=== PATIENT | male | born 2000 | race Caucasian/White ===

== ENCOUNTER 2025-03-08 11:30 | Emergency (ER) | payer SELFPAY ==
[2025-03-08 11:36] VITALS: BP 133/82; PULSE 80; TEMP 37; O2SAT 98; BMI 29.3
--- NOTE | 2025-03-08 11:58 | ED_ITS ---
HPI - Allergic Reaction General Chief complaint: Allergic Reaction Stated complaint: POSSIBLE ALLERGIC REACTION-FINGER SWELLING & ITCHI Time Seen by Provider: 03/08/25 11:48 Source: patient Mode of arrival: walk-in Limitations: no limitations History of Present Illness HPI narrative: Patient presented to the ER with a right hand swelling mostly toward the index finger that he noticed over the last few days he also mentioned that sometimes he will feel the itching in the left side he always have a dry skin but he never had itching and swelling No exposure to anybody who had similar problem and no exposure to any new environmental changes or any food or exposure Does not have any history of any significant allergies Related Data Previous Rx's ?Medication ?Instructions ?Recorded betamethasone valerate 0.1 % lotion 1 applic topical D AILY PRN itching 03/08/25 #60 mL Allergies Allergy/AdvReac Type Severity Reaction Status Date / Time No Known Drug Allergies Allergy Verified 03/08/25 11:35 PFSH PFSH Social History Little interest or pleasure in doing things: not at all Feeling down, depressed, or hopeless: not at all Exam Narrative Exam Narrative: Nurses notes and vital signs reviewed and patient is not hypoxic. General: Well-appearing and in no apparent distress. Skin: Patient have a very mild swelling at the proximal phalanx on the right hand mostly at the palmar aspect but there is no specific rash and he does have a dry skin Head: Normocephalic, atraumatic. Neck: Supple, non-tender. Eye: Pupils are equal, round and EOMI. No scleral icterus. Ears, Nose, Mouth, and Throat: Wearing his left ear set, oral mucosa is moist, no posterior oropharynx erythema, uvula is mid-line Cardiovascular: Regular Rate and Rhythm without murmur, gallop or rub. Respiratory: No accessory muscle use or respiratory distress. Lungs are clear to auscultation, no wheezing, rales or rhonchi Neurological: A&O x4. No cranial nerve dysfunction observed. No truncal ataxia. Moves all extremities. Sensation intact. Psychiatric: Cooperative avoiding any eye contact Constitutional Vital Signs, click to edit/add: Last Vital Signs Temp 98.6 F 03/08/25 11:36 Pulse 80 03/08/25 11:36 Resp 20 03/08/25 11:36 BP 133/82 03/08/25 11:36 Pulse Ox 98 03/08/25 11:36 Course Vital Signs Vital signs: Vital Signs Temperature 98.6 F 03/08/25 11:36 Pulse Rate 80 03/08/25 11:36 Respiratory Rate 20 03/08/25 11:36 Blood Pressure 133/82 03/08/25 11:36 Pulse Oximetry 98 03/08/25 11:36 Temperature 98.6 F 03/08/25 11:36 Pulse Rate 80 03/08/25 11:36 Respiratory Rate 20 03/08/25 11:36 Blood Pressure 133/82 03/08/25 11:36 Pulse Oximetry 98 03/08/25 11:36 MDM - Allergic Reaction MDM Narrative Medical decision making narrative: Patient presents to us with a mild case of itching and erythema to the area that is very mild mostly to the right hand but I did explain to the patient that right now although is not present at the moment if this keeps happening only in the fingers he needs to be evaluated for further pathology The patient does not have any history of Raynaud's phenomena The patient will be provided with prednisone here in the ER discharged home with local steroid cream for possible eczema The patient to follow-up with the primary care within 2 to 3 days and to come back to the ER in case of any worsening of the current symptoms or any new symptoms or concerns Discharge Plan Discharge Chief Complaint: Allergic Reaction Clinical Impression: Contact dermatitis Patient Disposition: Home, Self-Care Time of Disposition Decision: 11:59 Condition: Good Prescriptions / Home Meds: New betamethasone valerate 0.1 % lotion 1 applic topical DAILY PRN (Reason: itching) Qty: 60 0RF Print Language: Portuguese Instructions: Contact Dermatitis (DC) Discharge Date/Time: 03/08/25 12:30
--- OUTSIDE RECORDS SUMMARY | 2025-03-08 12:05 | XMS_ITS | Clinical Summary ---
Author Organization [facility] Address [address] [place] [address] Care Team Providers Care Process Engineering Technician Name Role Phone No, Physician Primary Care Provider Unavailabl e Allergies No known active allergies Medications No known medications Active Problems No known active problems Social History Tobacco UseTypesPacks/DayYears UsedDateSmoking Tobacco: FormerCigarettes Smokeless Tobacco: Never Tobacco Cessation:Counseling Given: Not Answered Alcohol UseStandard Drinks/WeekCommentsNever0 (1 standard drink = 0.6 oz pure alcohol)Sex and Gender InformationValueDate RecordedSex Assigned at BirthNot on fileLegal LehJmjm3506/23/2024 10:52 AM ESTGender IdentityNot on fileSexual OrientationNot on file Last Filed Vital Signs Vital SignReadingTime TakenCommentsBlood Iqcejgxk636/7406/23/2024 1:40 PM EST Ftsuo330806/23/2024 1:40 PM AYEEswldzgmpvl79.7 ??C (98 ??F)06/23/2024 1:40 PM EST Respiratory Ecby731906/23/2024 1:40 PM ESTOxygen Jajxbgatup47%06/23/2024 1:40 PM ESTInhaled Oxygen Concentration--Crwcfx27.9 kg (196 lb)06/23/2024 1:40 PM EST Height--Body Mass Index-- Plan of Treatment Health MaintenanceDue DateLast DoneCommentsTetanus: Every 10yrs (RETIRED) 1998Wellness Visit2001Depression Screening/Follow-Up (PHQ-2/9) 2010HIV Lenyqfwvk24/07/2014Hepatitis C Kuzdxjgrn53/07/2017COVID-19 Vaccine ( season)2025Influenza Vaccine (#1)2025Pneumococcal VaccineAged OutNo longer eligible based on patient's age to complete this topic Insurance Care Teams Team MemberRelationshipSpecialtyStart DateEnd Date No, Physician [facility] PCP - General06/23/24
--- OUTSIDE RECORDS SUMMARY | 2025-03-08 12:05 | XMS_ITS | Patient Health Record ---
Author Organization [facility] Address [address] [place] [address] Care Team Providers Care Forensic Medical Examiner Name Role Phone Bette Mendez Primary Care Provider Allergies No Known Allergies Reason For Referral No Information Medications Medication SIG (Take, Route, Frequency, Duration) Notes Start Date End Date Status Fluticasone Propionate 50 MC G/ACT Suspension 1 spray in each nostril Nasally Once a day; Duration: 30 days 09/25/2023ctiveTriamcinolone Acetonide 0.1 % Cream1 application Externally once a day; Duration: 5 days09/25/2023ctiveMontelukast Sodium 10 MG Tablet1 tablet Orally Once a day; Duration: 30 days12/18/2022ctive Social History Tobacco Use: Social History Observation Description Date Details (start date - stop date) Former Smoker NA - NA Social History GeneralSocial InfoQuestionAnswerNotesTransition of Care:ER/UC/hospital since last office visit?NoSpecialist seen since last office visit?NoSubstance abuse/mental health issues of patient/familyPatient -Caffeine UseAbility to understand healthcare/treatmentPatient:FairTobacco Screen:Are you a:Uses tobacco in other formsSocial/Support Concerns:Patient:NoAlcohol Screening:Did you have a drink containing alcohol in the past year?UyLiszeq6GwbxludpkhnlaaXqshvupg Behaviors affecting healthPoor/Risky Behaviors:Denies-Communication Barrier: Language Barrier?:NoTobacco Use:Social InfoQuestionAnswerNotesTobacco Control (Standard)Tobacco use:Former smoker Problems Problem Type SNOMED Code ICD Code Onset Dates Problem Status W/U Status Risk Notes Problem Allergic rhinitis (96568731) Allergic sin usitis (J30.9) Activeconfirmed Plan Of Treatment No Information Insurance Providers Payer Name Payer Address Payer Phone Subscriber Number Group Number Insured Name Patient Relationship to Insured Coverage Start Date Coverage End Date [facility] [address] [place] [phone] [id number] MARIJA CYR Self - patient is the insured 4 [employer] [id number] [place] [phone] Sb CYRf - patient is the [id number] Medical (General) History Medical History History ICD Code Seasonal allergies
[2025-03-08] MEDS: PREDNISONE 20 MG TABLET 40 MG PO (12:17)
[2025-03-08 12:27] VITALS: O2SAT 98
== END 2025-03-08 12:30 | disposition home or self-care (01) ==
PROVIDERS: Emergency Provider Emergency Medicine
DX: L25.9 Unspecified contact dermatitis, unspecified cause (principal); L85.3 Xerosis cutis
CPT/HCPCS: 99283; J7512